=== PATIENT | male | born 1955 | race American Indian/Alaskan Native ===

== ENCOUNTER 2022-03-25 22:52 | Emergency (ER) | payer MEDICARE ==
[2022-03-26 00:45] LABS: Mucus,Urine FEW /HPF
[2022-03-26 00:48] LABS: Color,Urine Yellow (Yellow)
[2022-03-26] MEDS ORDERED: SODIUM CHLORIDE 0.9% 1000 ML 1,000 ML IV ONE (06:29)
[2022-03-26 06:36] VITALS: BP 174/85
--- NOTE | 2022-03-26 07:09 | XRay Report ---
CHEST 1 VIEW 03/26/2022 5:56 AM INDICATION / CLINICAL INFORMATION: Dyspnea. COMPARISON: None available. FINDINGS: SUPPORT DEVICES: None. HEART / MEDIASTINUM: No significant abnormality. LUNGS / PLEURA: No significant pulmonary abnormality. No significant pleural effusion. No pneumothora x. ADDITIONAL FINDINGS: No significant additional findings. IMPRESSION: 1. No acute abnormality of the chest. Signer Name: Pako Carter MD Signed: 03/26/2022 7:04 AM Workstation Name: [id number]
[2022-03-26 07:47] LABS: Hematocrit 40.2 % (35.5-45.6); Hemoglobin 13.3 gm/dl (11.8-15.2); Mean Corpuscular HGB Conc 33 % (32-34); Mean Corpuscular Volume 90 fl (84-94); Platelet Count 273 K/mm3 (140-440); Red Blood Count 4.49 M/mm3 (3.65-5.03); Red Cell Distribution Width 15.8 % (13.2-15.2)
[2022-03-26 07:57] LABS: Creatine Kinase MB 2.6 ng/mL (0.0-4.0)
[2022-03-26 07:58] LABS: Alanine Aminotransferase 12 units/L (7-56); Albumin 4.2 g/dL (3.9-5); BUN/Creatinine Ratio 13; Blood Urea Nitrogen 14 mg/dL (9-20); Calcium 9.1 mg/dL (8.4-10.2); Hemolysis Index 8; INR 0.94 (0.87-1.13)
[2022-03-26] MEDS ORDERED: HYDROcodone/ACETAMINOPHEN 5-325 MG TAB PO ONE (08:14)
[2022-03-26 08:32] LABS: Total Cells Counted 100
[2022-03-26 08:33] LABS: Platelet Estimate Consistent w Auto
--- NOTE | 2022-03-26 09:11 | Cat Scan Report ---
CT head/brain wo con INDICATION / CLINICAL INFORMATION: 66 years Male; HTN and headache. TECHNIQUE: Routine CT head without contrast. All CT scans at this location are performed using CT dos e reduction for ALARA by means of automated exposure control. COMPARISON: None. FINDINGS: BRAIN / INTRACRANIAL CONTENTS: There appears be milder cerebral white matter disease most consistent with mild microvascular angiopathy. The ventricular system is within normal limits in size and config uration. The motion degrades the image quality. However, there is no clear CT evidence of acute intra cranial hemorrhage or significant mass effect. ORBITS: No significant abnormality of visualized orbits. SINUSES / MASTOIDS: No significant abnormality in the visualized paranasal sinuses or mastoid air ivon ls. CRANIOCERVICAL JUNCTION: No significant abnormality. ADDITIONAL FINDINGS: None. IMPRESSION: 1. There is no clear CT evidence of acute intracranial process. Signer Name: Vik Mckeon MD Signed: 03/26/2022 9:07 AM Workstation Name: [id number]
--- NOTE | 2022-03-26 09:22 | Emergency Department Report ---
ED General Adult HPI - General Chief complaint: High BP Stated complaint: BLOOD PRESSURE/HEADACHES PUI?: No Time Seen by Provider: 03/26/22 06:05 Source: patient Mode of arrival: Ambulatory Limitations: No Limitations - History of Present Illness Initial comments: HEADACHE AND DIZZINESS ALL DAY TODAY, STATES BP HAS BEEN HIGH. PT C/A/O, RESP UNLAB, SKIN EXPECTED COLOR WDI, PT AMB INTO TRIAGE W/ CANE. BANDAGES NOTED TO RT WRIST AND LT ANKLE -: Gradual, days(s) Location: head Radiation: non-radiation Severity scale (0 -10): 9 Consistency: intermittent Improves with: none - Related Data Allergies Allergy/AdvReac Type Severity Reaction Status Date / Time No Known Allergies Allergy Verified 03/25/22 23:53 ED Review of Systems ROS: Stated complaint: BLOOD PRESSURE/HEADACHES Other details as noted in HPI Constitutional: denies: chills, fever Eyes: denies: eye pain, eye discharge, vision change ENT: denies: ear pain, throat pain Respiratory: denies: cough, shortness of breath, wheezing Cardiovascular: denies: chest pain, palpitations Endocrine: no symptoms reported Gastrointestinal: denies: abdominal pain, nausea, diarrhea Genitourinary: denies: urgency, dysuria Musculoskeletal: denies: back pain, joint swelling, arthralgia Skin: denies: rash, lesions Neurological: denies: headache, weakness, paresthesias Psychiatric: denies: anxiety, depression Hematological/Lymphatic: denies: easy bleeding, easy bruising ED Past Medical Hx - Past Medical History Previous Medical History?: No - Surgical History Past Surgical History?: Yes Additional Surgical History: LT ANKLE FX. RT FORE ARM FX. 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 Absent: respiratory distress - Cardiovascular Cardiovascular Exam: Present: regular rate, normal rhythm. Absent: systolic murmur, diastolic murmur, rubs, gallop - GI/Abdominal GI/Abdominal exam: Present: soft, normal bowel sounds - Rectal Rectal exam: Present: deferred - Extremities Exam Extremities exam: Present: normal inspection - Back Exam Back exam: Present: normal inspection - Neurological Exam Neurological exam: Present: alert, oriented X3 - Psychiatric Psychiatric exam: Present: normal affect, normal mood - Skin Skin exam: Present: warm, dry, intact, normal color. Absent: rash ED Course Vital Signs 03/25/22 03/26/22 23:28 06:35 Temperature 98.4 F Pulse Rate 52 L 49 L Respiratory 18 16 Rate Blood Pressure 164/90 Blood Pressure 174/85 [Left] O2 Sat by Pulse 94 100 Oximetry ED Medical Decision Making - Lab Data Result diagrams: 03/26/22 07:04 03/26/22 07:04 - Radiology Data Radiology results: report reviewed, image reviewed Critical care attestation.: If time is entered above; I have spent that time in minutes in the direct care of this critically ill patient, excluding procedure time. ED Disposition Clinical Impression: Uncontrolled hypertension, Headache Disposition: 01 HOME / SELF CARE / HOMELESS Is pt being admited?: No Does the pt Need Aspirin: No Condition: Stable Instructions: Hypertension (ED), Preventing Hypertension, Hypertension, Adult, [id number] Referrals: HARRISON STERN MD [Primary Care Provider] - 3-5 Days
== END 2022-03-26 09:50 | disposition home or self-care (01) ==
LOC: ED 22:52
DX: I10 Essential (primary) hypertension (principal); R51.9 Headache, unspecified; F17.200 Nicotine dependence, unspecified, uncomplicated; Z98.890 Other specified postprocedural states
CPT/HCPCS: 36415; 70450; 71045; 80053; 81001; 82550; 82553; 83690; 83735; 84484; 85007; 85025; 85610; 96360; 99284; J7030